=== PATIENT | female | born 1945 | race Caucasian/White ===

== ENCOUNTER 2025-04-08 12:51 | Outpatient (REF) | payer OTHER, SELFPAY ==
[2025-04-08 17:57] LABS: MANUAL DIFF FLAG NO
[2025-04-08 18:06] LABS: Hematocrit 35.4 % (37.0-47.0); Hemoglobin 12.2 g/dl (12.0-16.0); Imm Gran Abs Auto 0.01 X10*3/uL (0.00-0.03); Imm Gran Pct Auto 0.2 % (0.0-0.4); Lymphocytes Absolute Auto 1.4 X10*3/uL (1.2-4.9); Mean Corpuscular HGB Conc 34.5 g/dl (31.0-35.0); Mean Corpuscular Hemoglobin 29.3 pg (27.0-33.0); Mean Corpuscular Volume 85.1 fL (80.0-98.0); NRBC Abs Auto 0.000 X10*3/uL (0.0-0.012); NRBC Pct Auto 0.0 /100WBC (0.0-0.2); Platelet Count 240 X10*3/uL (160-400); Red Blood Count 4.16 X10*6/uL (4.20-5.50); White Blood Count 5.5 X10*3/uL (4.8-10.8)
[2025-04-08 18:32] LABS: Alanine Aminotransferase 19 U/L (0-31); Albumin Level 4.6 g/dL (3.5-5.0); Alkaline Phosphatase 79 U/L (39-117); Anion Gap 14 (12-20); Aspartate Amino Transferase 17 U/L (5-31); Blood Urea Nitrogen 21 mg/dL (9-16); Calcium 9.5 mg/dL (8.4-10.2); Carbon Dioxide 25 mmol/L (22-29); Chloride 104 mmol/L (96-108); Estimated Glomerular Filt Rate 49; Magnesium 2.1 mg/dL (1.6-2.6); Potassium 4.0 mmol/L (3.3-5.1); Sodium 139 mmol/L (135-145); Total Protein 7.6 g/dL (6.5-8.0)
[2025-04-08 18:38] LABS: Appearance Urine Clear; Glucose Urine UA >=1000 mg/dL (Negative); PH 5.5 (5.0-9.0); Specific Gravity - Urine 1.020 (1.005-1.025); UMIC TRIGGER UACC YES
[2025-04-08 18:42] LABS: Microalbum/Creatinine Ratio Ur 104.9 ug/mg cr (<30)
[2025-04-08 19:10] LABS: Folate 10.0 ng/mL (> or = 4.0); Vitamin B12 816 pg/mL (200-900)
[2025-04-09 03:48] LABS: HBS Num1 > 1000.00 mIU/mL (0-7.99); HBsAGNum1 0.34 S/CO (0.00-0.99); HIV Num 1 0.07 S/CO (0.00-0.99); Hepatitis B Surface Antigen Negative (Negative); ~HepC Num1 0.08 S/CO (0.00-0.79); ~Hepatitis B Surface Antibody REACTIVE (Nonreactive); ~Hepatitis C Antibody Nonreactive (Nonreactive)
[2025-04-12 16:32] LABS: VITAMIN D (1,25 OH) D3 45 pg/mL; Vit D (1,25-Dihydroxy) Total 45 pg/mL (18-72); Vitamin D (1,25 OH) D2 <8 pg/mL
== END 2025-04-08 12:52 | disposition home or self-care (01) ==
LOC: HO.HKASLDS 12:51
PROVIDERS: PCP Student in an Organized Health Care Education/Training Program; Visit Provider Student in an Organized Health Care Education/Training Program
DX: Z13.9 Encounter for screening, unspecified (principal); E11.9 Type 2 diabetes mellitus without complications; I10 Essential (primary) hypertension; N95.9 Unspecified menopausal and perimenopausal disorder; E78.5 Hyperlipidemia, unspecified; Z87.442 Personal history of urinary calculi; Z79.4 Long term (current) use of insulin; Z79.2 Long term (current) use of antibiotics; Z79.899 Other long term (current) drug therapy
CPT/HCPCS: 36415; 80053; 81001; 82043; 82570; 82607; 82652; 82746; 83036; 83735; 84443; 85025; 86706; 86803; 87340; 87389; 96127; 99202

== ENCOUNTER 2025-04-08 12:51 | Outpatient (AMB) | payer OTHER, SELFPAY ==
--- OUTSIDE RECORDS SUMMARY | 2025-04-04 23:59 | XMS_ITS | Continuity of Care Document ---
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 Name Role Phone Doreen Han MD Primary Care Physician [place] [facility] [place]/25 [facility] [address] [place], [place] [phone] Encounter Type: Triage Allergies, Adverse Reactions, Alerts Substance Criticality Severity Reaction Reaction Severity Status lisinopril cough and pain in my bones Active losartan severe fatigue Activ e Farxiga Active Invokana weakness, naus ea, blurred vision Active Immunizations Given and Recorded Vaccine Date Status Refusal Reason influenza virus vaccine, inactivated 04/08/22 Han rded influenza virus vaccine, inactivated 04/15/21 Han rded influenza virus vaccine, inactivated 04/08/20 Han rded influenza virus vaccine, inactivated 04/10/19 Give n influenza virus vaccine, inactivated 03/29/18 Give n influenza virus vaccine, inactivated 1, 2 03/09/17 Given [id number] 12y+ bivalent booster vax 04/08/22 Recorded SARS-CoV-2 (COVID-19) mRNA BNT-162b2 vac 05/06/21 Recorded SARS-CoV-2 (COVID-19) mRNA BNT-162b2 vac 09/24/20 Recorded SARS-CoV-2 (COVID-19) mRNA BNT-162b2 vac 09/03/20 Recorded pneumococcal 13-valent vaccine 08/24/17 Given tetanus/diphtheria/pertussis, acel(Tdap) 03/09/17 Given 1Result Comment: [03/09/2017] [facility] [id number] 2Admin Note: [facility] [id number] Medications aloe vera oral capsule 1 capsule, By Mouth, Daily, # 60 capsule, 0 Refills, Maintenance, 10/12/19 11:38:00 AM EDT, Capsule Start Date: 10/12/19 Status: Ordered Medication Dispense Status: Completed Quantity: 60.0 Unit: capsule Total Allowed Fills: 1 Fills Dispensed: 0 atorvastatin 40 mg oral tablet 1 tablet = 40 mg, By Mouth, Daily, # 90 tablet, 3 Refills, Maintenance, 03/05/25 12:37:00 PM EDT, Tablet, [facility] #[id number], Partial fill upon patient request if the prescription is for a schedule II opioid drug., 158, cm, 02/19/25 9:48:00 EDT, Height Start Date: 03/05/25 Status: Ordered Medication Dispense Status: Completed Quantity: 90.0 Unit: tablet Total Allowed Fills: 4 Fills Dispensed: 0 CoQ10 100 mg cap = 100 mg, By Mouth, Daily, 0 Refills, Maintenance, 02/19/25 10:06:00 AM EDT, Partial fill upon patient request if the prescription is for a schedule II opioid drug. Start Date: 02/19/25 Status: Ordered Medication Dispense Status: Completed Total Allowed Fills: 1 Fills Dispensed: 0 diclofenac 1% topical gel 1 application, Topically, 4 times a day, # 100 Gm, 2 Refills, Maintenance, 09/13/24 7:47:00 PM EDT, Gel, [facility] #[id number], Partial fill upon patient request if the prescription is for a schedule II opioid drug., 158, cm, 09/13/24 19:39:00 EDT, Height Start Date: 09/13/24 Status: Ordered Medication Dispense Status: Completed Quantity: 100.0 Unit: g Total Allowed Fills: 3 Fills Dispensed: 0 famotidine 20 mg oral tablet 20 mg, 1, tablet, By Mouth, Daily at bedtime, to be taken instead of pantoprazole for 2 weeks avoideating and drinking for 10 minutes after each dose label in ghanaian, # 30 tablet, Refills 0, Tot. Refills 0, Maintenance, 08/07/24 8:42:00 PM EST, Route to Pharmacy Electronically, [facility] #[id number], Partial fill upon patient request if the prescription is for a schedule II opioid drug., 158, cm, 07/31/24 11:04:00 EST, Height Start Date: 08/07/24 Status: Ordered Medication Dispense Status: Completed Quantity: 30.0 Unit: tablet Total Allowed Fills: 1 Fills Dispensed: 0 glipizide-metformin 5 mg-500 mg oral tablet 1 tablet, By Mouth, 2 times a day, ghanaian label, # 180 tablet, 5 Refills, Maintenance, 02/19/25 10:04:00 AM EDT, Tablet, [facility] #[id number], Partial fill upon patient request if the prescription is for a schedule II opioid drug., 1 tablet By Mouth 2 times a day,Instr:ghanaian label, 158, cm, 02/19/25 9:48:00 EDT, Height Start Date: 02/19/25 Status: Ordered Medication Dispense Status: Completed Quantity: 180.0 Unit: tablet Total Allowed Fills: 6 Fills Dispensed: 0 Indications: Type 2 diabetes mellitus without complications; indapamide 1.25 mg oral tablet 1 tablet = 1.25 mg, By Mouth, Daily in AM, # 30 tablet, 0 Refills, Maintenance, 03/30/18 11:12:13 AM EDT, Tablet Start Date: 03/30/18 Status: Ordered Medication Dispense Status: Completed Quantity: 30.0 Unit: tablet Total Allowed Fills: 1 Fills Dispensed: 0 Januvia 100 mg oral tablet 1 tablet, By Mouth, Daily, # 90 tablet, 5 Refills, Maintenance, 02/19/25 10:03:00 AM EDT, [facility] #[id number], 158, cm, 02/19/25 9:48:00 EDT, Height Start Date: 02/19/25 Status: Ordered Medication Dispense Status: Completed Quantity: 90.0 Unit: tablet Total Allowed Fills: 6 Fills Dispensed: 0 Indications: Type 2 diabetes mellitus without complications; Jardiance 25 mg oral tablet 1 tablet = 25 mg, By Mouth, Daily in AM, *Belarusian label please*, # 90 tablet, 5 Refills, Maintenance, 02/19/25 10:04:00 AM EDT, Tablet, [facility] #[id number], Partial fill upon patient request ifthe prescription is for a schedule II opioid drug., 158, cm, 02/19/25 9:48:00 EDT, Height Start Date: 02/19/25 Status: Ordered Medication Dispense Status: Completed Quantity: 90.0 Unit: tablet Total Allowed Fills: 6 Fills Dispensed: 0 Indications: Type 2 diabetes mellitus without complications; Lantus Solostar Pen 100 units/mL subcutaneous solution See Instructions, INJECT 12 UNITS SUBCUTANEOUS INFUSION DAILY AT BEDTIME, # 15 mL, 0 Refills, Maintenance, 01/02/25 11:33:00 AM EDT, [facility]., 158, cm, 01/02/25 9:41:00 EDT, Height Start Date: 01/02/25 Status: Ordered Medication Dispense Status: Completed Quantity: 15.0 Unit: mL Total Allowed Fills: 1 Fills Dispensed: 0 latanoprost 0.005% ophthalmic solution 0 Refills, Maintenance, 12/06/24 8:33:00 AM EDT, Partial fill upon patient request if the prescription is for a schedule II opioid drug. Start Date: 12/06/24 Status: Ordered Medication Dispense Status: Completed Total Allowed Fills: 1 Fills Dispensed: 0 olmesartan 20 mg oral tablet 1 tablet = 20 mg, By Mouth, Daily, # 30 tablet, 2 Refills, Maintenance, 02/19/25 10:20:00 AM EDT, [id number], Partial fill upon patient request if the prescription is for a schedule II opioid drug., 158, cm, 02/19/25 9:48:00 EDT, Height Start Date: 02/19/25 Status: Ordered Medication Dispense Status: Completed Quantity: 30.0 Unit: tablet Total Allowed Fills: 3 Fills Dispensed: 0 Indications: Essential (primary) hypertension; One Touch Delica Lancets See Instructions, # 100 each, Refills 11, Tot. Refills 11, Maintenance, use as directed for Type 2 Diabetes Mellitus anson 2 (E11.9), daily 3 times before meals 1 box = 100 lancets, 01/02/25 11:34:00 AMEDT, Supply, 158, cm, 01/02/25 9:41:00 EDT, Height Start Date: 01/02/25 Status: Ordered Medication Dispense Status: Completed Quantity: 100.0 Unit: each Total Allowed Fills: 12 Fills Dispensed: 0 OneTouch Verio Test Strips See Instructions, # 100 each, Refills 11, Tot. Refills 11, Maintenance, Check BS twice a day Dx: DMtype 2 (E11.9); Duration: Lifetime., 02/19/25 10:02:00 AM EDT, Supply, 158, cm, 02/19/25 9:48:00 EDT,Height Start Date: 02/19/25 Status: Ordered Medication Dispense Status: Completed Quantity: 100.0 Unit: each Total Allowed Fills: 12 Fills Dispensed: 0 Indications: Type 2 diabetes mellitus without complications; pantoprazole 20 mg oral delayed release tablet 1 tablet = 20 mg, By Mouth, Daily, PRN Dyspepsia, # 90 tablet, 1 Refills, Maintenance, 12/04/24 11:26:00 AM EDT, CR Tablet, 158, cm, 11/22/24 9:43:00 EDT, Height Start Date: 12/04/24 Status: Ordered Medication Dispense Status: Completed Quantity: 90.0 Unit: tablet Total Allowed Fills: 2 Fills Dispensed: 0 Pen [place], 32 G x 4 mm BD Ultra Fine III See Instructions, # 100 each, Refills 5, Tot. Refills 5, Maintenance, use once daily to inject Lantus, 01/02/25 11:34:00 AM EDT, Supply, 158, cm, 01/02/25 9:41:00 EDT, Height Start Date: 01/02/25 Status: Ordered Medication Dispense Status: Completed Quantity: 100.0 Unit: each Total Allowed Fills: 6 Fills Dispensed: 0 Vitamin B12 1000 mcg oral tablet 1 tablet = 1,000 mcg, By Mouth, Daily, # 30 tablet, 0 Refills, Maintenance, 02/19/25 10:07:00 AM EDT,Tablet, Partial fill upon patient request if the prescription is for a schedule II opioid drug. Start Date: 02/19/25 Status: Ordered Medication Dispense Status: Completed Quantity: 30.0 Unit: tablet Total Allowed Fills: 1 Fills Dispensed: 0 Vitamin C 1000 mg oral tablet 1 tablet = 1,000 mg, By Mouth, Daily, # 30 tablet, 0 Refills, Maintenance, 02/19/25 10:06:00 AM EDT, Tablet, Partial fill upon patient request if the prescription is for a schedule II opioid drug. Start Date: 02/19/25 Status: Ordered Medication Dispense Status: Completed Quantity: 30.0 Unit: tablet Total Allowed Fills: 1 Fills Dispensed: 0 Vitamin D3 125 mcg (5000 intl units) oral tablet, disintegrating 1 tablet = 125 mcg, By Mouth, Daily, 0 Refills, Maintenance, 02/19/25 10:07:00 AM EDT, Partial fill upon patient request if the prescription is for a schedule II opioid drug. Start Date: 02/19/25 Status: Ordered Medication Dispense Status: Completed Total Allowed Fills: 1 Fills Dispensed: 0 Problem List Condition Confirmation Course Effective Dates Status H ealth Status Informant Allergic rhinitis Confirmed Active Breast right:atypical apocrine hyperplasia Confirmed Active Vitamin B12 deficiency Confirmed Active Hyperhidrosis, generalized Confirmed Active Glaucoma Confirmed Active History of cataract surgery Confirmed Active Hyperlipidemia NOS Confirmed Active Hypertension Confirmed Active Dyspepsia Confirmed Active Anemia, iron deficiency Confirmed Active Nephrolithiasis Confirmed Active Peripheral neuropathy Confirmed Active *[id number] [address] [place] Nathalie Wade Confirmed Active Tubular adenoma of colon 1 Confirmed 04/06/18 Active Diabetes mellitus, type 2 Confirmed Active Urgency incontinence Confirmed Active 1repeat colonoscopy in 2022 Social History Social History Type Response Sexual Sexually involved in last 6 months: No. Smoking Status Former smoker, quit more than 30 days ago; Other: Quit 25 years ago; entered on: 11/02/22 Sex Sex Representation Female (finding) Patient Care team information Care Team Personnel Name: Milly Mendez RN Position: [facility] RN Member Role: Primary Care Nurse Name: Doreen Han MD Position: [facility] Resident Member Role: PCP Address: [address] [place] [address] Telecom: Name: Laura Soria RN Position: [facility] AMB Nurse Member Role: Primary Care Nurse Care Team Related Persons Name: SOFY ROBBINS Name: FRANKIE MCCARTY Insurance Providers Guarantor name: MARÍA ORTIZ Health Plan Information #: 1 Payer: [facility] [employer] Payer Identifier: NA Member Number: [id number] Group Number: [id number] Subscriber Identifier: NA Relationship to Subscriber: self Coverage Type: Medicare Managed Care (Includes Medicare Advantage Plans) Coverage Verification Date: NA Telecom: NA Address: NA
--- OUTSIDE RECORDS SUMMARY | 2025-04-07 23:59 | XMS_ITS | Continuity of Care Document ---
Author Organization [facility] Address [address] [place] [address]- Care Team Providers Care Data Manager Name Role Phone Doreen Han MD Primary Care Physician [place] [facility] [place]25 [facility] [address] [place], [place] [phone] Encounter Type: Triage Allergies, Adverse Reactions, Alerts [...] virus vaccine, inactivated 1, 2 03/09/17 Given [id number] 12y+ bivalent booster vax 04/08/22 Recorded SARS-CoV-2 (COVID-19) mRNA BNT-162b2 vac 05/06/21 Recorded SARS-CoV-2 (COVID-19) mRNA BNT-162b2 vac 09/24/20 Recorded SARS-CoV-2 (COVID-19) mRNA BNT-162b2 vac 09/03/20 Recorded pneumococcal 13-valent vaccine 08/24/17 Given tetanus/diphtheria/pertussis, acel(Tdap) 03/09/17 Given 1Result Comment: [03/09/2017] [facility] [id number] 2Admin Note: [facility] [id number] Medications aloe vera oral capsule 1 capsule, [...] Refills, Maintenance, 03/05/25 12:37:00 PM EDT, Tablet, [facility] #[id number], Partial fill upon patient request if the [...] Refills, Maintenance, 09/13/24 7:47:00 PM EDT, Gel, [facility] #[id number], Partial fill upon patient request if the [...] 10 minutes after each dose label in [place], # 30 tablet, Refills 0, Tot. Refills 0, Maintenance, 08/07/24 8:42:00 PM EST, Route to Pharmacy Electronically, [facility] #[id number], Partial fill upon patient request if the prescription is for a schedule II opioid drug., 158, cm, 07/31/24 11:04:00 EST, Height Start Date: 08/07/24 Status: Ordered Medication Dispense Status: Completed Quantity: 30.0 Unit: tablet Total Allowed Fills: 1 Fills Dispensed: 0 glipizide-metformin 5 mg-500 mg oral tablet 1 tablet, By Mouth, 2 times a day, [place] label, # 180 tablet, 5 Refills, Maintenance, 02/19/25 10:04:00 AM EDT, Tablet, [facility] #[id number], Partial fill upon patient request if the prescription is for a schedule II opioid drug., 1 tablet By Mouth 2 times a day,Instr:[place] label, 158, cm, 02/19/25 9:48:00 EDT, Height [...] 5 Refills, Maintenance, 02/19/25 10:03:00 AM EDT, [facility] #[id number], 158, cm, 02/19/25 9:48:00 EDT, Height Start Date: 02/19/25 Status: Ordered Medication Dispense Status: Completed Quantity: 90.0 Unit: tablet Total Allowed Fills: 6 Fills Dispensed: 0 Indications: Type 2 diabetes mellitus without complications; Jardiance 25 mg oral tablet 1 tablet = 25 mg, By Mouth, Daily in AM, *Swedish label please*, # 90 tablet, 5 Refills, Maintenance, 02/19/25 10:04:00 AM EDT, Tablet, [facility] #[id number], Partial fill upon patient request ifthe prescription [...] 0 Refills, Maintenance, 01/02/25 11:33:00 AM EDT, [facility]., 158, cm, 01/02/25 9:41:00 EDT, Height [...] Refills, Maintenance, 02/19/25 10:20:00 AM EDT, Tablet, [facility] #[id number], Partial fill upon patient request if the [...] Allowed Fills: 2 Fills Dispensed: 0 [place], 32 G x 4 mm BD Ultra [...] Nephrolithiasis Confirmed Active Peripheral neuropathy Confirmed Active *[id number] [employer] Nathalie Wade Confirmed Active Tubular adenoma of [...] Team Personnel Name: Milly Mendez RN Position: [facility] RN Member Role: Primary Care Nurse Name: Doreen Han MD Position: [facility] Resident Member Role: PCP Address: [address] [place] [address] Telecom: Name: Laura Soria RN Position: [facility] AMB Nurse Member Role: Primary Care Nurse Care Team Related Persons Name: SOFY ROBBINS Name: FRANKIE MCCARTY Insurance Providers Guarantor name: MARÍA ORTIZ Health Plan Information #: 1 Payer: [facility] [employer] Payer Identifier: NA Member Number: [id number] Group Number: [id number] Subscriber Identifier: NA Relationship to Subscriber: self Coverage Type: Medicare Managed Care (Includes Medicare Advantage Plans) Coverage Verification Date: NA Telecom: NA Address: NA
--- NOTE | 2025-04-08 12:55 | A.OFFPC_ITS ---
Vital Signs 04/08/25 13:00 Height 5 ft 2.6 in Weight 132 lb 4 oz BMI 23.7 BP 134/64 Blood Pressure Location Lt brachial Position Sitting Pulse 77 Temp 98.2 F Temp Source Oral Pulse Oximetry (%) 98 Oxygen Delivery Method Room Air Intake Visit Reasons: Diabetes Accompanied by: Self / Same As Patient Allergies No Known Allergies Allergy (Verified 04/08/25 12:56) Tobacco use date assessed: 04/08/25 Fall risk assessment: No Falls in past year Last assessed Fall Risk: 04/08/25 Dental Screening Dental Screen Date: 04/08/25 Did you have a dental visit in the last 12 months?: Yes HPI HPI Comments History of Present Illness Details History of Present Illness The patient is a 79-year-old female presenting to [facility] care with a new physician for management of chronic conditions, including diabetes. Type 2 diabetes mellitus: The patient has a diagnosis of diabetes mellitus and sought a new provider after her previous nurse practitioner denied a referral to an sales representative cash registers. Her most recent hemoglobin A1c was 8.2%, having trended down from 8.9% and 8.6%. Her current regimen for diabetes includes 12 units of insulin in the morning and sitagliptin. She has not yet seen a superintendent automotive for diabetic foot care but does have annual eye exams due to having glaucoma and a history of cataracts. Hypertension: The patient monitors her blood pressure and reports a reading of 137/62 mmHg this morning. She is currently taking olmesartan 20 mg. History of nephrolithiasis: The patient has a history of kidney stones and underwent her last surgery for this condition in 2013. A urologist prescribed indapamide to prevent the formation of new stones. Hyperlipidemia: The patient was previously prescribed atorvastatin 40 mg but stopped taking it after a few months, stating that a lab test showed her cholesterol was normal. Postmenopausal symptoms: The patient reports experiencing persistent menopausal symptoms, including hot flashes with sweating and cold sensations, despite nearing 80 years of age. Her previous sole edge inker machine had mentioned she was in a small percentage of women with prolonged menopause. Surgical History: - Cataract surgery, bilateral - Kidney stone surgery, last procedure i n 2013 - Right breast mass excision Medications: - Olmesartan 20 mg for hypertension - Insulin 12 units in the morning for di abetes - Sitagliptin (Januvia) for diabetes - Indapamide for prevention of kidney st ones - Latanoprost eye drops for glaucoma - Pantoprazole 20 mg - Amoxicillin 500 mg three times a day f or seven days, for dental procedure Social History: - Nutrition: The patient reports eating home-cooked meals, including meat and rice, and tries to avoid overeating. Diagnostic Results: - Blood pressure: 137/62 mmHg at home, 1 34/64 mmHg in office. - Hemoglobin A1c: Last result was 8.2%, trended down from 8.6% and 8.9%. - Colonoscopy: Last performed [facility] seven years ago. - Pap smear: Reported as normal. - Breast sonography: Performed annually, with normal results reported. Past Medical History - Type 2 diabetes mellitus - Hypertension - Glaucoma - History of hyperlipidemia - History of nephrolithiasis Health Maintenance - Comprehensive lab work ordered today, including CMP, lipid panel, thyroid panel, vitamin levels, and infectious disease screening. - Discussed need for flu and pneumococca l vaccinations. - Patient has colonoscopy scheduled for May. [facility] Medical History (Updated 04/08/25 @ 13:21 by Himanshu Plasencia MD) Diabetes mellitus type 2 in nonobese Encounter for screening, unspecified Family History (Updated 04/08/25 @ 12:56 by Nolvia Parra CMA) Mother No problems noted. Father No problems noted. Social History Housing: House Patient Tobacco Use Status: Never used Tobacco service: No Current occupational status: retired Cognitive needs: No Hearing needs: No Vision needs: No Questionnaire PHQ-9 Over the last 2 weeks, how often have you been bothered by any of the following problems? 1. Little interest or pleasure in doing things: not at all 2. Feeling down, depressed, or hopeless: not at all 3. Trouble falling or staying asleep, or sleeping too much: several days 4. Feeling tired or having little energy: not at all 5. Poor appetite or overeating: not at all 6. Feeling bad about yourself - or that you are a failure or have let yourself or your family down: not at all 7. Trouble concentrating on things, such as reading the newspaper or watching television: not at all 8. Moving or speaking so slowly that other people could have noticed. Or the opposite - being so fidgety or restless that you have been moving around a lot more than usual: not at all 9. Thoughts that you would be better off or of hurting yourself in some way: not at all Total score: 1 Source: Developed by Drs. Antonio Rabago, Charo Hinson, Rainer Aguirre and colleagues, with an educational austen from [employer]. Thrive Questionnaire I am a: Patient What is your living situation today?: I have a steady place to live Within the past 12 months, did the food you bought not last and you didn't have the money to get more?: Never true Within the past 12 months, did you worry whether your food would run out before you got money to buy more?: Never true Do you have trouble paying for medicines?: No Do you have trouble getting transportation to medical appointments?: No Do you have trouble paying your heating and electricity bill?: No Do you have trouble taking care of your child, family member or friend?: No Are you currently unemployed and looking for a job?: No Are you interested in more education?: No Please select the resources that you would like help with: None Currently or been in a relationship where the following occur: No concerns reported THRIVE Score: 0 AUDIT C Alcohol Use Questionnaire (AUDIT-C) 1. How often do you have a drink containing alcohol?: Never Total Score: 0 PAIGE-7 AMB Questionnaire PAIGE-7 Feeling nervous, anxious, or on edge: 0 = Not at all Not being able to stop or control worryin = Not at all Worrying too much about different things: 1 = Several days Trouble relaxin = Not at all Being so restless that it is hard to sit still: 0 = Not at all Becoming easily annoyed or irritable: 0 = Not at all Feeling afraid as if something awful might happen: 0 = Not at all Total PAIGE-7 score (0-4 normal; 5-9 mild; 10-14 moderate; 15-21 severe): 1 Source: Developed by Drs. Antonio Rabago, Rainer Rogers and colleagues, with an educational austne from [employer]. Review of Systems Narrative Review of Systems - Constitutional: Reports vasomotor symptoms including hot flashes, sweating, and feeling cold. - Eyes: Reports history of cataracts and glaucoma. - Skin: Reports a healing wound on her left katz. - Genitourinary: Reports history of kidney stones. - Cardiovascular: Denies feeling the effects of high blood pressure. 10-point ROS reviewed and negative except as noted in HPI Physical exam (Primary Care) Vital Signs: Last Vital Signs Temp 98.2 F 04/08/25 13:00 Pulse 77 04/08/25 13:00 BP 134/64 04/08/25 13:00 Pulse Ox 98 04/08/25 13:00 Oxygen Delivery Method Room Air 04/08/25 13:00 BMI result Body Mass Index 23.7 Tobacco/Smoking Status: Tobacco use Status Tobacco use date assessed 04/08/25 04/08/25 12:57 Patient Tobacco Use Status Never used Tobacco 04/08/25 12:57 PHQ-9: PHQ-9 Score PHQ-9: Total score 1 04/08/25 13:00 Currently or been in a relationship where the following occur: No concerns reported Narrative Physical Exam General: Well-appearing, in no acute distress. Vital signs: Blood pressure recorded at 137/62 and 134/64. HEENT: Normocephalic, atraumatic. PERRLA, EOMI. Conjunctiva clear, sclera anicteric. Oropharynx clear, mucous membranes moist. TMs intact bilaterally. History of cataract surgery and glaucoma in both eyes, using Latanoprost. Neck: Supple, no lymphadenopathy, no thyromegaly, no JVD or carotid bruits. Cardiovascular: RRR, normal S1/S2, no murmurs, rubs, or gallops. Peripheral pulses 2+ and symmetric. No edema. Respiratory: Lungs clear to auscultation bilaterally, no wheezes, rales, or rhonchi. Normal effort. Abdomen: Soft, non-tender, non-distended. Normoactive bowel sounds. No hepatosplenomegaly, no masses. MSK: Full range of motion, no joint swelling or deformity. Normal gait. Skin: Warm, dry, intact. Healing wound on the left anterior katz, mid portion with a little erythema, no signs of infection. Neuro: Alert and oriented x3. Cranial nerves II-XII intact. Strength 5/5 throughout. Sensation intact. Reflexes 2+ symmetric. Normal coordination and gait. Psych: Appropriate mood and affect. Normal judgment and insight. Coding Level of Care Code New Pt Level 4 (32405) Diagnoses Diabetes mellitus type 2 in nonobese E11.9 Hypertension I10 History of nephrolithiasis Z87.442 Hyperlipidemia E78.5 Postmenopausal symptoms N95.9 Assessment & Plan Assessment & Plan (1) Diabetes mellitus type 2 in nonobese: Code(s): E11.9 - Type 2 diabetes mellitus without complications Category: Medical (2) Hypertension: Code(s): I10 - Essential (primary) hypertension (3) History of nephrolithiasis: Code(s): Z87.442 - Personal history of urinary calculi (4) Hyperlipidemia: Code(s): E78.5 - Hyperlipidemia, unspecified (5) Postmenopausal symptoms: Code(s): N95.9 - Unspecified menopausal and perimenopausal disorder Plan Consent Patient was informed and verbally consented to the use of an ambient scribe for clinic note documentation during this visit. Plan 1. Type 2 Diabetes Mellitus - Will obtain comprehensive labs today, including hemoglobin A1c, complete metabolic panel, and lipid panel, to assess current control and organ function. - A referral to a superintendent automotive for an annual diabetic foot exam will be placed. - Educated the patient on the importance of annual eye exams and foot exams, as well as quarterly hemoglobin A1c checks. - Patient to follow up in two weeks to review results and discuss further management, including a potential endocrinology referral. 2. Hypertension - Continue current dose of olmesartan 20 mg daily, as blood pressure appears to be controlled. - Patient to continue monitoring blood pressure at home. 3. Hyperlipidemia - A lipid panel will be drawn today to re-evaluate her cholesterol levels. - Will discuss the need for statin therapy at the follow-up visit based on lab results, given her non-adherence to atorvastatin. 4. Postmenopausal Vasomotor Symptoms - Will discuss potential non-hormonal treatment options for her vasomotor symptoms during the follow-up visit in two weeks. Discussion Notes I have initiated care for this new patient by ordering a comprehensive set of labs to establish a baseline for her multiple chronic conditions, including diabetes, hypertension, and hyperlipidemia. We reviewed her current medications, and her blood pressure appears to be controlled. I emphasized the importance of standard diabetic health maintenance, including annual podiatry and ophthalmology exams, as well as regular A1c checks. Regarding her persistent postmenopausal symptoms, I advised that we can discuss non-hormonal treatment options once her lab results are available. I advised her to continue topical antibiotic treatment for her healing katz wound and scheduled a follow-up appointment in two weeks to review all results and formulate a long-term plan. Patient Instructions - Please go to the lab to have your blood drawn today. - Return to the clinic in two weeks to discuss your lab results and our plan for your health. - Continue taking all your current medications as prescribed. - Keep applying triple antibiotic ointment to the wound on your leg. - As a person with diabetes, it is important to have your feet checked by a specialist (superintendent automotive) once a year and your eyes checked once a year. - Remember to get your flu shot and pneumococcal vaccine. Medical Decision Making The patient is a 79-year-old female presenting to establish care primarily for management of her poorly controlled type 2 diabetes. Her reason for changing providers was the denial of a referral to an sales representative cash registers by her previous provider. Her most recent HgbA1c of 8.2% despite being on both insulin and sitagliptin confirms suboptimal glycemic control and warrants further evaluation. My initial approach is to gather comprehensive baseline data before making significant changes to her regimen. I have ordered a full lab panel, including HgbA1c, CMP, and lipids, to assess her overall metabolic status. Her hypertension appears stable on olmesartan, and her hyperlipidemia will be reassessed given her history of stopping atorvastatin. I have provided education on essential diabetic preventative care, particularly the need for a podiatry evaluation, which has been overlooked. The plan is to review the objective data at a follow-up in two weeks, at which point we will discuss adjustments to her diabetes management, the necessity of statin therapy, and potential non-hormonal treatments for her persistent vasomotor symptoms. Total time spent caring for the patient today was 30 minutes. This includes time spent before the visit reviewing the chart, time spent documenting, and time spent reviewing laboratory results, diagnostic imaging, medications, performing a medically necessary evaluation, counseling on diagnoses, care coordination Orders: Orders Comprehensive Met. Panel Today Z13.9 - Encounter for screening, unspecified Hepatitis B Surface Antibody Today Z13.9 - Encounter for screening, unspecified Hepatitis B Surface Antigen Today Z13.9 - Encounter for screening, unspecified Hepatitis C Antibody Today Z13.9 - Encounter for screening, unspecified HIV Ab/Ag Today Z13.9 - Encounter for screening, unspecified Magnesium Today Z13.9 - Encounter for screening, unspecified Microalbumin, Random (w Creat) Today Z13.9 - Encounter for screening, unspecified UA CC w/rflx Micro + Cult Today Z13.9 - Encounter for screening, unspecified Complete Blood Count Auto Diff Today Z13.9 - Encounter for screening, unspecified Hemoglobin A1c Today Z13.9 - Encounter for screening, unspecified TSH reflex Free T4 Today Z13.9 - Encounter for screening, unspecified Vitamin B12 and Folate Today Z13.9 - Encounter for screening, unspecified Vitamin D 1,25 dihydroxy Today Z13.9 - Encounter for screening, unspecified Referrals Nutrition/Dietitian Referral E11.9 - Type 2 diabetes mellitus without complications Podiatry Referral E11.9 - Type 2 diabetes mellitus without complications, Z13.9 - Encounter for screening, unspecified Nurse Navigator Referral E11.9 - Type 2 diabetes mellitus without complications
[2025-04-08 13:00] VITALS: BP 134/64; PULSE 77; TEMP 36.8; O2SAT 98; BMI 23.7
--- OUTSIDE RECORDS SUMMARY | 2025-04-08 16:20 | XMS_ITS | Data Portability ---
Author Organization [facility], [place] [facility] Address [address] [place] [address] Care Team Providers Care Applied Technologist Name Role Phone [facility] Primary Care Provider HIM CCA OTHER Assessment Encounter Date Assessment Date Assessment LastModified by Organization Details LastModified Time 09/06/2023 09/06/2023 service called for fatigue found 77 matt with diabetes on metformin and januvia c/o morning and evening episodes of tiredness no recent changes to DM meds assoc with BG elev ~190s denies polyuria, polydipsia denies chest pain/pressure /diaphoresis denies f/c VSS afebrile reported exam neg BG 340 COVID neg noted lactate ~4 but no other si/sx infectious process, VBG pH not acidemia above expected #Episodes fatigue no e/o new infectious process suspect diabetes under controlled recc f/up PCP re diabetes mgt notify service if worsening fatigue otherwise return to ptimary teamm vkudesia Not available 09/06/2023 19:42:07 Plan of Treatment Reminders Order Date Submit Date Provider Last Modified By Organization Details Last Modified Time Details Appointments None recorded. Lab rapid flu (A+B) 2023 024 [facility], [address] [place] [address], [id number] 4 11:08:37 rapid SARS CoV 2 Ag, QL IA, respiratory specimen 2023 [facility] [address] [place] [address], [id number] 4 11:08:38 Referral None recorded. Procedures None recorded. Surgeries None recorded. Imaging None recorded. Medication Orders Tessalon Perles 100 mg capsule 2023 [id number], [address], [place], [id number], 4 11:08:43 albuterol sulfate HFA 90 mcg/actuati on aerosol inhaler 2023 [facility] #[id number], [address], [place], [id number], 4 11:08:42 Robitussin Cough-Chest Congestion DM 5 mg-100 mg/5 mL oral liquid 2023 [facility] #[id number], [address], [place], [id number], 4 11:08:42 albuterol sulfate 2.5 mg/3 mL (0.083 %) solution for nebulizatio n 2023 [facility] #[id number], [address], [place], [id number], 4 11:08:34 Patient TargetsNo targets recorded. Patient InstructionsNo instructions recorded. Reason for Referral None Reported. Results Created Date Observation Date Name Description Value Unit Range Abnormal Flag Note LastModifiedBy Organization Detail LastModifiedTime 03/08/20 24 03/08/2024 rapid SARS CoV 2 Ag, QL IA, respi rator y speci men rapid SARS CoV 2 Ag, QL IA, respiratory specimen negati ve Not Available Main - [facility] ed [address] [place] [address], [id number] 03/08/2024 11:07:25 03/08/20 24 03/08/2024 rapid flu (A+B) Flu negati ve Not Available Main - [facility] ed [address] [place] [address], [phone] 03/08/2024 11:06:55 Result Notes None recorded. Medical Equipment None Reported. Allergies Allergen ID Allergen Name Allergen Category Reaction Reaction Severity Criticality Documentation Date Start Date Code Code System Note Provider Name and Address Organization Details Recorded Time 6316 canaglifl ozin medicatio n Not available Not available Not available 03/08/2024 27069 [id number] RxNorm EWA FOREMAN MD [address] [facility],[address], [place], [phone], CARMEL - CRYSTAL HERR 4 11:04:28 Medications Name Sig Start Date Stop Date Status Note LastModified by Organization Details LastModified Time acetic acid 2 % ear solution INSTILL 5 DROPS INTO BOTH EARS THREE TIMES DAILY FOR 10 DAYS NEEDED FOR EAR ITCHINESS active Not Available Not Available No t Available paroxetine 10 mg tablet TAKE 1 TABLET BY MOUTH DAILY active Not Available Not Available Not Available albuterol sulfate 2.5 mg/3 mL (0.083 %) solution for nebulization Inhale 3 mL every day by nebulizatio n route. 2023 active Not Available Not Available Not Avai lable alendronate 70 mg tablet TAKE 1 TABLET BY MOUTH EVERY WEEK active Not Available Not Available No t Available amoxicillin 500 mg tablet TAKE 1 TABLET BY MOUTH EVERY 8 HOURS UNTIL GONE active Not Available Not Available N ot Available pantoprazole 20 mg tablet,delay ed release TAKE 1 TABLET BY MOUTH DAILY active Not Available Not Available Not Available glyburide 5 mg-metformin 500 mg tablet TAKE 2 TABLETS BY MOUTH TWICE DAILY TAKE 2 TABLETS BY MOUTH 2 TIMES DAILY active Not Available Not Available Not Available benzonatate 100 mg capsule TAKE 1 CAPSULE BY MOUTH THREE TIMES DAILY FOR 5 DAYS active Not Available Not Available N ot Available indapamide 1.25 mg tablet TAKE 1 TABLET BY MOUTH ONCE A DAY active Not Available Not Available No t Available albuterol sulfate HFA 90 mcg/actuatio n aerosol inhaler INHALE 2 PUFFS BY MOUTH EVERY 4 HOURS FOR 5 DAYS active Not Available Not Available No t Available amoxicillin 875 mg-potassium clavulanate 125 mg tablet TAKE 1 TABLET BY MOUTH EVERY 12 HOURS FOR 7 DAYS active Not Available Not Available N ot Available melatonin 1 mg tablet TAKE 1 TABLET BY MOUTH EVERY NIGHT AT BEDTIME active Not Available Not Available No t Available chlorhexidin e gluconate 0.12 % mouthwash active Not Available Not Available No t Available Alphagan P 0.1 % eye drops INSTILL 1 DROP IN BOTH EYES TWICE DAILY DIRECTED active Not Available Not Available Not Available fluocinolone acetonide oil 0.01 % ear drops INSTILL 5 DROPS IN BOTH EARS TWICE DAILY FOR 14 DAYS active Not Available Not Available Not Available Januvia 100 mg tablet TAKE 1 TABLET BY MOUTH DAILY active Not Available Not Available Not Available OneTouch Verio test strips USE TO CHECK BLOOD SUGAR TWICE DAILY active Not Available Not Available No t Available [facility] with Large Mask USE DIRECTED WITH INHALER active Not Available Not Available No t Available Jardiance 10 mg tablet TAKE 1 TABLET BY MOUTH DAILY IN THE MORNING active Not Available Not Available No t Available Jardiance 25 mg tablet TAKE 1 TABLET BY MOUTH DAILY IN THE MORNING BELARUSIAN active Not Available Not Available No t Available Trulicity 0.75 mg/0.5 mL subcutaneous pen injector ADMINISTER 0.75 MG UNDER THE SKIN EVERY WEEK. ROTATE INJECTION SITES. active Not Available Not Available No t Available melatonin 10 mg-lemon balm leaf extract 1 mg tablet TAKE 1 TABLET BY MOUTH EVERY NIGHT AT BEDTIME active Not Available Not Available No t Available Robitussin Cough-Chest Congestion DM 5 mg-100 mg/5 mL oral liquid Take 10 mL every 8 hours by oral route as needed for 5 days. 2023 active Not Available Not Available Not Avai lable OneTouch Delica Plus Lancet 33 gauge USE DIRECTED THREE TIMES DAILY BEFORE MEALS active Not Available Not Available No t Available Rybelsus 3 mg tablet active Not Available Not Available No t Available BinaxNOW COVID-19 Ag Self Test kit TEST DIRECTED TODAY active Not Available Not Available No t Available Vitals Date Recorded Respiratory rate Body height Heart rate Body temperature Body weight Oxygen saturation Oxygen saturation in Arterial blood by Pulse oximetry Systolic And Diastolic Provider Name and Address Organization Details Last Updated DateTime 4 14 /min 152.4 cm 90 /min 98.4 [degF] 69764 g 98 % 98 % 132/84 mm[Hg] Not Available [facility] 4 18:06:13 Date Recorded Body temperature Oxygen saturation Oxygen saturation in Arterial blood by Pulse oximetry Heart rate Body weight Respiratory rate Systolic And Diastolic Provider Name and Address Organization Details Last Updated DateTime 4 97.8 [degF] 95 % 95 % 98 /min 93999.3 44 g 16 /min 120/68 mm[Hg] Not Available [facility] 4 11:00:04 Social History None recorded. Functional Status None recorded. Mental Status None recorded. Family History Nothing Reported. Medical History No medical history recorded. Gynecological HistoryNo gynecological history recorded. Obstetrics History GPAL:G 0 P 0 0 0 0 Past Encounters Encounter ID Performer Location Encounter Start Date Encounter Closed Date Diagnosis/Indication Diagnosis SNOMED-CT Code Diagnosis ICD10 Code Diagnosis IMO Codes Diagnosis Note [id number] Ena Urrutia MD Main - [address] [address] 09/06/2023 18:06:05 09/06/2023 21:02:38 Fatigue 24456395 R53.83 [id number] EWA FOREMAN MD Main - [address] [address] 03/08/2024 11:00:00 03/08/2024 14:44:11 Viral upper respiratory tract infection 199399574 J06.9 Evaluation in the field was performed by my body joiner colleague, as noted above, I provided real-time direction and supervisio n for this visit. The evaluation revealed a 78-year-ol d female with a history of Type 2 diabetes mellitus, presenting with complaints of a non-produc tive cough for the past 3 days. The patient denies fever, nausea, vomiting, diarrhea, runny nose, sore throat, chest pain, shortness of breath, abdominal pain, headache, or dizziness. Her grandson states he was recently sick with the same symptoms. The patient is tolerating oral intake well. Vital signs were significan t only for SpO of 95% on room air, otherwise unremarkab le. The patient was afebrile.E xam revealed faint rhonchi in the lower right lung with good air movement and no wheezing. No lower extremity edema was noted.Rapi d COVID and flu tests were negative.A llergies: reviewed Impression :Viral Upper Respirator y Tract infection Plan:-Albu terol neb 3 mL was administer ed. A prescripti on for Albuterol inhaler and spacer was sent to her pharmacy.- Tessalon Perles 1 capsule TID for 5 days was sent to her pharmacy. Pt provided with coupon .-Robituss in 10 mg TID as needed was sent to her pharmacy.- The patient was advised to continue supportive measures, including drinking tea with honey, plenty of fluids, and taking -Tylenol 1 gram every 8 hours as needed for myalgia/fe [place].-Red flags were discussed with the patient. Primary care, consider__ _ Dispositio n: We discussed the diagnostic uncertaint y of home visits and the risk associated with this. In this case, the patient and I felt this to be an acceptable and reasonable amount of risk given the benefit of avoiding an ED visit. We discussed the need to seek care urgently/e mergently in the setting of any new or worsening serious symptoms, particular ly fever, chills, CP, SOB, nausea, vomiting, diarrhea, weakness, dizziness or any other concerns. Health Concerns Section Related Observation LastModified by Organization Detai ls LastModified Time None Recorded Concern Status LastModified by Organization Details LastModified Time None Recorded Advance Directives Directive None Recorded Payers Insurance Date Sequence Insurance Name Policy Number Policy Landry Covered Member ID Landry Member ID Guarantor Name 03/08/2024 1 [facility] - DOS ON OR AFTER 2022 - DUAL ELIGIBLE - SKILLED NURSING OPTIONS AND ONE CARE (MEDICARE REPLACEMENT/ADV ANTAGE - HMO) Rachana Fleming [id number] Rachana Fleming Notes Date Note Type Note Provider Name and Address Organization Details Recorded Time 09/06/2023 text/html [facility] Nurse Triage Notes (Marylu Kowalski): Reason For Request: Pt reporting 2 weeks with weakness>denies fever>no body pains>states she is normally typically active>denies headaches>states having COVID 19 two other times in the past with only congestive symptoms. Patient Reports: Cough, fever greater than 2 days ; Cough Denies: Unable to speak in full sentences without distress Chief Complaints: Weakness/Lethargy PMH: Diabetes Comments: Bermudian speaking with PMH: DM Daily metformin, and Insulin use. c/o weakness, no other specific symptoms. Denies cardiac or Resp disease Possibly may be R/T to Covid. Requesting a visit today. Jensen MARCANO .................. .................. .................. .................. .................. .................. .................. ............... Mix Mill Tender Note From Abran Castaneda: Patient conscious alert and oriented times three answers door with a even steady gate. Strong language barrier all information through [employer]. Patient complains of general tiredness that comes and goes for the last two weeks. Patient reports she is on metformin Januvia and checks her sugar each morning. Last check this morning was 193. Patient denies any respiratory urinary G.I. Pain or any other pain or complaints patient reports normal intake and elimination. Patient denies any fever, cough, congestion, aches, change, routine or other. Patient stated sometimes she s woken up at night because it s hot. Patient pink, warm and dry secondary exam unremarkable, good skin turgor, negative edema lung sounds clear negative increased work of breathing, abdomen soft and nontender. Patient Covid and flu negative via rapid POC . CMP values to [facility] advises patient follow up with PCP will patient reports is managing her diabetes. Patient reports she called her part. Doctors office will promise to call her back within 24 hours, but have not followed through. This medic attempts to call but no answer after hours. Encourage to check her sugar when she feels tired and or hot. Red flags, and patient education discussed all information through [employer] .................. .................. .................. .................. .................. .................. .................. ............... Disposition: Tai Urrutia MD [address] [facility],[address], [place], [phone], [employer] 09/06/2023 19:42:17 03/08/2024 text/html ROS as noted in the HPI [facility] Nurse Triage Notes (Angélica Francis): Reason For Request: Pt reporting pain/body aches + a cough that has not been letting her sleep going on 3 days, in which she has been taking OTC medication Chief Complaints: Cough PMH: Diabetes Allergies: No Known Comments: Salt Operator verified the member's name//address and phone number. Member is a 78 yr old female , armenian speaking PMH >DM Allergies >NKDA Pt has had 3 days for cough, denies f/c /n/v. She has been taking an OTC medication , tylenol and cough medicine with no change. PT denies any SOB. HAs a h/o DM, unsure BS at this time Education provided on the response time and the member was advised to monitor reported s/s and seek emergency treatment if needed .................. .................. .................. .................. .................. .................. .................. ............... Mix Mill Tender Note From Venkat Escalante: Pt co non productive cough for past 3 days, denies fever , NC, NVD, runny nose , sore throat, cp, sob, abdominal pain, headache or dizziness. Baseline vitals assessed WNL , Covid and flu negative. Grandson sts he was just sick with same symptoms. Lungs rhonchi in lower right otherwise clear. [facility] contacted and duo neb given, RX for benzonatate, and robutussin DM , and albuterol inhaler called in. Grandson will draft roller picker. Pt signed hard copy consent and uploaded. Pt education on signs indicating the ER. Pt advised to follow up with pcp if symptoms persist. Pt instruction on how to use albuterol inhaler. .................. .................. .................. .................. .................. .................. .................. ............... Disposition: Tai FOREMAN MD [address] [place] [address],[address] [facility], [place], [phone], CRYSTAL OLSEN 03/08/2024 13:02:52 OBGyn Episode No OBEpisode recorded.
== END 2025-04-08 13:29 | disposition home or self-care (01) ==
LOC: HO.HMCFMS 12:52
PROVIDERS: Visit Provider Student in an Organized Health Care Education/Training Program
DX: E11.9 Type 2 diabetes mellitus without complications (principal); I10 Essential (primary) hypertension; Z87.442 Personal history of urinary calculi; E78.5 Hyperlipidemia, unspecified; N95.9 Unspecified menopausal and perimenopausal disorder

== ENCOUNTER 2025-04-24 09:24 | Outpatient (AMB) | payer OTHER, SELFPAY ==
--- NOTE | 2025-04-24 09:25 | MHC.PC.OV ---
Vital Signs 04/24/25 09:33 Height 5 ft 2.6 in Weight 133 lb BMI 23.9 BP 160/67 H Blood Pressure Location Rt brachial Position Sitting Respiration 16 Pulse 75 Pulse Source Monitor Temp 97.5 F Temp Source Oral Pulse Oximetry (%) 99 Oxygen Delivery Method Room Air Intake Visit Reasons: 2 wk f/u - lab review Intake Note: lab review Manufacturing Assembler Required: Yes Manufacturing Assembler Name: I Speak sao tomean Accompanied by: Self / Same As Patient Allergies No Known Allergies Allergy (Verified 04/24/25 09:30) Medication List - Last Reconciled 04/24/25 by Himanshu Plasencia MD atorvastatin 40 mg PO DAILY blood sugar diagnostic As directed coenzyme Q10 (Co Q-10) 100 mg PO DAILY empagliflozin (Jardiance) 25 mg PO DAILY glipizide-metformin 5-500 mg 1 tab PO BID indapamide 1.25 mg PO DAILY insulin glargine (Lantus Solostar U-100 Insulin) units subcut latanoprost 0.005% 1 drp ophthalmic (eye) BID olmesartan 20 mg PO DAILY pantoprazole 20 mg PO DAILY PRN sitagliptin phosphate (Januvia) 100 mg PO DAILY Tobacco use date assessed: 04/08/25 Fall risk assessment: 1 Fall in past year Last assessed Fall Risk: 04/24/25 Dental Screening Dental Screen Date: 04/08/25 HPI HPI Comments History of Present Illness Details History of Present Illness The patient is a 79-year-old female presenting for follow-up of type 2 diabetes and review of laboratory results. Type 2 diabetes mellitus: The patient's current hemoglobin A1c is 8.2%. Her medication regimen includes Jardiance 25 mg, a combination of glipizide 5 mg and metformin 500 mg, Januvia 100 mg, and 12 units of insulin taken in the morning before breakfast. She reports not taking her Januvia recently because she believed she had no refills left. The patient states she feels very comfortable with her current management. Medications: - Jardiance 25 mg - Glipizide-metformin 5-500 mg - Insulin 12 units in the morning - Januvia (sitagliptin) 100 mg, which the patient has not been taking recently due to a perceived lack of refills Social History: - Functional Status: The patient reports being independent and performs all her own activities of daily living. Diagnostic Results: - Hemoglobin A1c: 8.2% - Hemogram: Normal, including white blood cells, red blood cells, hemoglobin, and platelets. - Comprehensive Metabolic Panel: Sodium, potassium, and kidney function are normal. - Vitamin D: Good - Folate: Good - Thyroid function: Normal - Urinalysis: Normal - Hepatitis B: Negative - Hepatitis C: Negative - HIV: Negative Past Medical History - Type 2 diabetes mellitus Health Maintenance - Laboratory monitoring for diabetes with hemoglobin A1c. - Screening for Hepatitis B, C, and HIV was performed and results were negative. [facility] Medical History (Updated 04/24/25 @ 19:14 by Himanshu Plasencia MD) Microalbuminuria Glucose intolerance Chronic kidney disease, stage 3a Diabetes mellitus type 2 in nonobese Encounter for screening, unspecified Family History Mother No problems noted. Father No problems noted. Social History (Updated 04/24/25 @ 09:33 by Larry Mosquera CMA) Housing: House Alcohol intake: never Patient Tobacco Use Status: Never used Tobacco service: No Current occupational status: retired Cognitive needs: No Hearing needs: No Vision needs: No Questionnaire Thrive Questionnaire Date Thrive assessed: 04/08/25 I am a: Patient What is your living situation today?: I have a steady place to live Within the past 12 months, did the food you bought not last and you didn't have the money to get more?: Never true Within the past 12 months, did you worry whether your food would run out before you got money to buy more?: Never true Do you have trouble paying for medicines?: No Do you have trouble getting transportation to medical appointments?: No Do you have trouble paying your heating and electricity bill?: No Do you have trouble taking care of your child, family member or friend?: No Are you currently unemployed and looking for a job?: No Are you interested in more education?: No Please select the resources that you would like help with: None Currently or been in a relationship where the following occur: No concerns reported THRIVE Score: 0 Review of Systems Narrative Review of Systems - Constitutional: Reports feeling very comfortable. - Neurological: Denies dizziness. - All other systems reviewed and are negative. 10-point ROS reviewed and negative except as noted in HPI Physical exam (Primary Care) Vital Signs: Last Vital Signs Temp 97.5 F 04/24/25 09:33 Pulse 75 04/24/25 09:33 Resp 16 04/24/25 09:33 BP 160/67 H 04/24/25 09:33 Pulse Ox 99 04/24/25 09:33 Oxygen Delivery Method Room Air 04/24/25 09:33 BMI result Body Mass Index 23.9 Tobacco/Smoking Status: Tobacco use Status Tobacco use date assessed 04/08/25 04/24/25 09:26 Patient Tobacco Use Status Never used Tobacco 04/24/25 09:33 Thrive Assessment: Date of Thrive Assessment Date Thrive assessed 04/08/25 04/24/25 09:26 Currently or been in a relationship where the following occur: No concerns reported Narrative Physical Exam General: Well-appearing, in no acute distress. Vital signs: Within normal limits. HEENT: Normocephalic, atraumatic. PERRLA, EOMI. Conjunctiva clear, sclera anicteric. Oropharynx clear, mucous membranes moist. TMs intact bilaterally. Neck: Supple, no lymphadenopathy, no thyromegaly, no JVD or carotid bruits. Cardiovascular: RRR, normal S1/S2, no murmurs, rubs, or gallops. Peripheral pulses 2+ and symmetric. No edema. Respiratory: Lungs clear to auscultation bilaterally, no wheezes, rales, or rhonchi. Normal effort. Abdomen: Soft, non-tender, non-distended. Normoactive bowel sounds. No hepatosplenomegaly, no masses. MSK: Full range of motion, no joint swelling or deformity. Normal gait. Skin: Warm, dry, intact. No rashes, lesions, or pallor. Neuro: Alert and oriented x3. Cranial nerves II-XII intact. Strength 5/5 throughout. Sensation intact. Reflexes 2+ symmetric. Normal coordination and gait. Psych: Appropriate mood and affect. Normal judgment and insight. Coding Level of Care Code Est Pt Level 4 (63245) Diagnoses Diabetes mellitus type 2 in nonobese E11.9 Chronic kidney disease, stage 3a N18.31 Glucose intolerance E74.39 Microalbuminuria R80.9 Assessment & Plan Assessment & Plan (1) Diabetes mellitus type 2 in nonobese: Code(s): E11.9 - Type 2 diabetes mellitus without complications Category: Medical (2) Chronic kidney disease, stage 3a: Code(s): N18.31 - Chronic kidney disease, stage 3a Category: Medical (3) Glucose intolerance: Code(s): E74.39 - Other disorders of intestinal carbohydrate absorption Category: Medical (4) Microalbuminuria: Code(s): R80.9 - Proteinuria, unspecified Category: Medical Plan Consent Patient was informed and verbally consented to the use of an ambient scribe for clinic note documentation during this visit. Plan 1. Type 2 Diabetes Mellitus - The patient's hemoglobin A1c is 8.2%. - While the goal is an A1c of 7%, an aggressive approach will be avoided to prevent hypoglycemia and the associated risks of dizziness and falls in an elderly patient. - No changes will be made to her current medication regimen, which includes Jardiance 25 mg, glipizide/metformin 5/500 mg, Januvia 100 mg, and 12 units of insulin in the morning. - Plan to repeat labs in three months to reassess. 2. Chronic Kidney Disease Stage 3a - monitor -avoid nephrotoxic medications 3. microalbuminuria - monitor continue with Jardiance which provides renal protection and slows down the progression of CKD Discussion Notes I reviewed the lab results with the patient, noting her HgbA1c is 8.2%. I explained that while the goal is around 7%, we must be cautious with her treatment to avoid hypoglycemia, which could cause dizziness or falls given her age. Since she is feeling well, we will not change her current medications at this time. We will repeat labs in three months to monitor her condition. Patient Instructions - Continue taking your current diabetes medications as prescribed. - I will send in a refill for your Januvia medication. - We will check your blood work again in three months. Medical Decision Making The patient is a 79-year-old female presenting for follow-up of her type 2 diabetes. Her hemoglobin A1c is currently 8.2%, which is above the target of 7%. Given her age, a primary consideration is the avoidance of hypoglycemia and its potential complications, such as dizziness and falls. The patient reports feeling well and comfortable on her current medication regimen. Therefore, the decision was made to continue her current regimen without changes. This includes Jardiance 25 mg, glipizide-metformin 5-500 mg, Januvia 100mg, and 12 units of insulin daily. A refill for Michaeluvia will be provided, as she has not been taking it due to a perceived lack of refills. We will monitor her progress with repeat labs in three months. Review of her recent labs, including a hemogram, CMP, vitamin D, folate, thyroid panel, and infectious disease screening, was unremarkable. Total time spent caring for the patient today was 20 minutes. This includes time spent before the visit reviewing the chart, time spent documenting, and time spent reviewing laboratory results, diagnostic imaging, medications, performing a medically necessary evaluation, counseling on diagnoses, care coordination.
[2025-04-24 09:33] VITALS: BP 160/67; PULSE 75; RESP 16; TEMP 36.4; O2SAT 99; BMI 23.9
--- OUTSIDE RECORDS SUMMARY | 2025-04-24 10:19 | XMS_ITS | Data Portability ---
Author Organization [employer] [facility], [place] [employer] [facility] Address [address] [place] [address] Care Team Providers Care Reconciliation Coordinator Name Role Phone [facility] Primary Care Provider HIM [...] recorded. Lab rapid flu (A+B) 2023 024 [employer] [facility], [address] [place] [address], [phone] 4 11:08:37 rapid SARS CoV 2 Ag, QL IA, respiratory specimen [facility] [address] [place] [address], [id number] 4 11:08:38 Referral None recorded. Procedures None recorded. Surgeries None recorded. Imaging None recorded. Medication Orders Tessalon Perles 100 mg capsule 2023 [id number], [address], [place], [phone], 4 11:08:43 albuterol sulfate HFA 90 mcg/actuati on aerosol inhaler 2023 [facility][id number], [address], [place], [phone], 4 11:08:42 Robitussin Cough-Chest Congestion DM 5 mg-100 mg/5 mL oral liquid 2023 [facility] #[id number], [address], [place], [phone], 4 11:08:42 albuterol sulfate 2.5 mg/3 mL (0.083 %) solution for nebulizatio n 2023 [facility] #[id number], [address], [place], [phone], 4 11:08:34 Patient TargetsNo targets recorded. Patient InstructionsNo instructions recorded. Reason for Referral None Reported. Results Created Date Observation Date Name Description Value Unit Range Abnormal Flag Note LastModifiedBy Organization Detail LastModifiedTime 03/08/20 24 03/08/2024 rapid SARS CoV 2 Ag, QL IA, respi rator y speci men rapid SARS CoV 2 Ag, QL IA, respiratory specimen negati ve Not Available Main - [facility] ed [address] [place] [address], [phone] 03/08/2024 11:07:25 03/08/20 24 03/08/2024 rapid flu (A+B) Flu negati ve Not Available Main - [facility] ed [address] [place] [address], [phone] 03/08/2024 11:06:55 Result Notes None recorded. Medical Equipment None Reported. Allergies Allergen ID Allergen Name Allergen Category Reaction Reaction Severity Criticality Documentation Date Start Date Code Code System Note Provider Name and Address Organization Details Recorded Time 6316 canaglifl ozin medicatio n Not available Not available Not available 03/08/2024 35209 58 RxNorm EWA FOREMAN MD [address] [facility],[address], [place], [phone], CARMEL - CRYSTAL HERR 4 11:04:28 [...] Not Available Not Available No t Available [facility] with Large Mask USE DIRECTED WITH INHALER active Not Available Not Available No t Available Jardiance 10 mg tablet TAKE 1 TABLET BY MOUTH DAILY IN THE MORNING active Not Available Not Available No t Available Jardiance 25 mg tablet TAKE 1 TABLET BY MOUTH DAILY IN THE MORNING DANISH active Not Available Not Available No t [...] /min 152.4 cm 90 /min 98.4 [degF] 84132 g 98 % 98 % 132/84 mm[Hg] Not Available [employer] 4 18:06:13 Date Recorded Body temperature Oxygen saturation Oxygen saturation in Arterial blood by Pulse oximetry Heart rate Body weight Respiratory rate Systolic And Diastolic Provider Name and Address Organization Details Last Updated DateTime 4 97.8 [degF] 95 % 95 % 98 /min 10507.3 44 g 16 /min 120/68 mm[Hg] Not Available [employer] 4 11:00:04 Social History None recorded. Functional Status None recorded. Mental Status None recorded. Family History Nothing Reported. Medical History No medical history recorded. Gynecological HistoryNo gynecological history recorded. Obstetrics History GPAL:G 0 P 0 0 0 0 Past Encounters Encounter ID Performer Location Encounter Start Date Encounter Closed Date Diagnosis/Indication Diagnosis SNOMED-CT Code Diagnosis ICD10 Code Diagnosis IMO Codes Diagnosis Note [id number] Ena Urrutia MD Main - [address] [address] 09/06/2023 18:06:05 09/06/2023 21:02:38 Fatigue [id number] R53.83 [id number] EWA FOREMAN MD Main - [address] [address] 03/08/2024 11:00:00 03/08/2024 14:44:11 Viral upper respiratory tract infection [id number] J06.9 Evaluation in the field was performed by my manager dialysis colleague, as noted above, I provided real-time [...] Landry Member ID Guarantor Name 03/08/2024 1 [facility] - DOS ON OR AFTER 2022 - DUAL ELIGIBLE - RESIDENTIAL OPTIONS AND ONE CARE (MEDICARE REPLACEMENT/ADV ANTAGE - HMO) Rachana Fleming [id number] Rachana Fleming Notes Date Note Type Note [...] distress Chief Complaints: Weakness/Lethargy PMH: Diabetes Comments: [place]an speaking with PMH: DM Daily metformin, and Insulin use. c/o weakness, no other specific symptoms. Denies cardiac or Resp disease Possibly may be R/T to Covid. Requesting a visit today. Jensen MARCANO .................. .................. .................. .................. .................. .................. .................. ............... Reed Dipper Note From Abran Castaneda: Patient conscious alert and oriented times three answers door with a even steady gate. Strong language barrier all information through Channel Sales Director. Patient complains of general tiredness that comes [...] via rapid POC . CMP values to [facility] advises patient follow up with PCP [...] and patient education discussed all information through Channel Sales Director .................. .................. .................. .................. .................. .................. .................. ............... Disposition: Tai Urrutia MD [address] [facility],[address], [place], [address], [employer] 09/06/2023 19:42:17 03/08/2024 text/html ROS as noted in the HPI CRC Nurse Triage Notes (Angélica Francis): Reason For Request: Pt reporting pain/body aches + a cough that has not been letting her sleep going on 3 days, in which she has been taking OTC medication Chief Complaints: Cough PMH: Diabetes Allergies: No Known Comments: Crop Supervisor verified the member's name//address and phone number. Member is a 78 yr old female , danish speaking PMH >DM Allergies >NKDA Pt has [...] .................. .................. .................. .................. .................. .................. ............... Reed Dipper Note From Venkat Escalante: Pt co non productive cough for past 3 days, denies fever , NC, NVD, runny nose , sore throat, cp, sob, abdominal pain, headache or dizziness. Baseline vitals assessed WNL , Covid and flu negative. Grandson sts he was just sick with same symptoms. Lungs rhonchi in lower right otherwise clear. [facility] contacted and duo neb given, RX for benzonatate, and robutussin DM , and albuterol inhaler called in. Grandson will picker box operator. Pt signed hard copy consent and uploaded. Pt education on signs indicating the ER. Pt advised to follow up with pcp if symptoms persist. Pt instruction on how to use albuterol inhaler. .................. .................. .................. .................. .................. .................. .................. ............... Disposition: Tai FOREMAN MD [address] [place] [address],[address] [facility], [place], [address], CRYSTAL OLSEN 03/08/2024 13:02:52 OBGyn Episode No OBEpisode recorded.
== END 2025-04-24 09:49 | disposition home or self-care (01) ==
LOC: HO.HMCFMS 09:24
PROVIDERS: PCP Student in an Organized Health Care Education/Training Program; Visit Provider Student in an Organized Health Care Education/Training Program
DX: E11.9 Type 2 diabetes mellitus without complications (principal); N18.31 Chronic kidney disease, stage 3a; E74.39 Other disorders of intestinal carbohydrate absorption; R80.9 Proteinuria, unspecified

== ENCOUNTER → 2025-04-24 09:24 | Outpatient (BNVA) | payer OTHER, SELFPAY | PROVIDERS: Visit Provider Student in an Organized Health Care Education/Training Program | DX: E11.22 Type 2 diabetes mellitus with diabetic chronic kidney disease (principal); N18.31 Chronic kidney disease, stage 3a; Z79.4 Long term (current) use of insulin; E74.39 Other disorders of intestinal carbohydrate absorption; R80.9 Proteinuria, unspecified; Z79.899 Other long term (current) drug therapy | CPT/HCPCS: 99211; 99212 ==

== ENCOUNTER 2025-05-21 08:30 | Outpatient (AMB) | payer OTHER, SELFPAY ==
[2025-05-21 08:43] VITALS: BMI 23.7
--- NOTE | 2025-05-21 08:43 | MHC.OFFVIS ---
Vital Signs 05/21/25 08:43 Height 5 ft 2.6 in Weight 132 lb BMI 23.7 Intake Visit Reasons: Type 2 Diabetes Intake Note: Rachana is a 79 year old female who presents to the office today for as a new patient visit for a Diabetic foot exam referred by her PCP Dr. Plasencia. Pt states her glucose is currently at 140 and her last A1c was 8.7%. She denies experiencing any numbness or tingling however she experiences occasionally slight burning in the plantar aspect of her foot. She has no previous medical history of wounds, injuries, or amputations to her feet. [id number] Field Mechanic Required: Yes Field Mechanic Services: Field Mechanic Present Field Mechanic Name: [id number] Allergies No Known Allergies Allergy (Verified 05/21/25 08:44) HPI Comments Details: Chief Complaint The patient presents for a routine annual diabetic foot examination. History of Present Illness The patient is a 79 year old female presenting for an annual diabetic foot examination. She has a history of diabetes, with a recent hemoglobin A1c around 8%. She reports an intermittent burning sensation in her feet, which typically occurs at night when she wakes to use the bathroom. The sensation affects one foot at a time, not both concurrently. She denies any other foot pain. [facility] Medical History (Updated 05/21/25 @ 09:08 by Jake Velazquez DPM) Microalbuminuria Glucose intolerance Chronic kidney disease, stage 3a Diabetes mellitus type 2 in nonobese Encounter for screening, unspecified Family History Mother No problems noted. Father No problems noted. Social History (Updated 04/24/25 @ 09:33 by Larry Mosquera CMA) Housing: House Alcohol intake: never Patient Tobacco Use Status: Never used Tobacco service: No Current occupational status: retired Cognitive needs: No Hearing needs: No Vision needs: No Review of Systems Const All systems reviewed & are unremarkable except as noted in HPI and below Physical Exam Exam Exam: Diagnostic results - Labs: Hemoglobin A1c is around 8%. Pathology results Physical Exam - Vascular: Good circulation with strong blood flow to the feet. - Neurologic: Sensation intact to monofilament testing on the feet. - Integumentary: Skin of the feet is slightly dry. - A callus is noted, which is attributed to underlying arthritis in a joint. Vital Signs: BMI result Body Mass Index 23.7 Extrem Other: *Bilateral Lower Extremity Focused Diabetic Foot Exam Vascular: DP/PT 2/4, CFT<3s to digits, TG warm to cool, no pedal edema, pedal hair absent Derm: Skin: bilateral medial hallux hyperkeratotic lesions Interdigital spaces: Clear, no maceration or fungal infection. Nails: No onychomycosis, paronychia, or ingrown nails. Neuro: [place]-sharona monofilament (10g) test 10/10 intact to right foot, 10/10 intact to left foot. Msk: Moderate hallux IPJ flexion deformity with crepitus on range of motion bilateral feet, right worse than left Deformities: No evidence of hammertoes, bunions, Charcot changes, or other structural abnormalities. Muscle strength: 5/5 in all muscle groups. Gait: Normal, no antalgic or steppage gait observed. Footwear Assessment: Shoes inspected; appropriate fit, no excessive wear, or foreign objects noted. Results Reviewed Results Reviewed: Laboratory Tests 04/08/25 13:40 Hemoglobin A1c % 8.7 H Assessment & Plan Assessment & Plan (1) Diabetes mellitus type 2 in nonobese: Code(s): E11.9 - Type 2 diabetes mellitus without complications Category: Medical Plan: Risk Stratification: No current ulceration, infection, or pre-ulcerative lesion. No loss of protective sensation or peripheral arterial disease. No plans for further testing/referrals for non-invasive vascular studies. Patient is at low risk for diabetic foot complications at this time. Recommendations: Continue routine foot care and daily self-inspection. Recommend moisturizing daily. Recommend supportive proper fitting shoe-wear. The patient may require diabetic shoes in the future. Reinforced diabetic foot education and risks from peripheral neuropathy. (2) Diabetic peripheral neuropathy: Code(s): E11.42 - Type 2 diabetes mellitus with diabetic polyneuropathy Category: Medical Plan: Patient reports an intermittent burning sensation in her feet, primarily at night. Treatment options were discussed however she states since the symptom is mild and infrequent, she does not want to pursue any treatments at this time. 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 The callus was debrided. Advised to keep the area well-moisturized. Plan The patient was counseled on the importance of an annual foot examination for individuals with diabetes to prevent future complications. She was informed that her nocturnal burning sensation is likely related to her diabetes. She was also educated on the fact that injuries or cuts may take longer to heal due to her diabetes, necessitating increased caution. The use of moisturizers for dry skin was discussed, and she was advised to return for a follow-up in one year. Coding Level of Care Code New Pt Level 4 (60535) Diagnoses Diabetes mellitus type 2 in nonobese E11.9 Diabetic peripheral neuropathy E11.42 Callus of foot L84 Time Spent (min) 35
== END 2025-05-21 09:11 | disposition home or self-care (01) ==
LOC: HO.HPODS 08:30
PROVIDERS: PCP Student in an Organized Health Care Education/Training Program; Visit Provider Student in an Organized Health Care Education/Training Program
DX: E11.42 Type 2 diabetes mellitus with diabetic polyneuropathy (principal); L84 Corns and callosities
CPT/HCPCS: 99204

== ENCOUNTER → 2025-05-21 08:30 | Outpatient (BNVA) | payer OTHER, SELFPAY | PROVIDERS: PCP Student in an Organized Health Care Education/Training Program; Visit Provider Student in an Organized Health Care Education/Training Program | DX: E11.42 Type 2 diabetes mellitus with diabetic polyneuropathy (principal); L84 Corns and callosities | CPT/HCPCS: 99202 ==